=== PATIENT | male | born 1990 | race Hispanic/Latino ===

== ENCOUNTER 2022-08-15 20:38 | Emergency (ER) | payer OTHER ==
[~2022-08-15] VITALS: Ht 167.6 cm; Wt 72.6 kg
[2022-08-15 20:51] VITALS: BP 118/71
== END 2022-08-15 21:26 ==
LOC: EEVIPCON 20:38 → EDH 20:38
DX: T18.9XXA Foreign body of alimentary tract, part unspecified, initial encounter (principal); F32.A Depression, unspecified; X58.XXXA Exposure to other specified factors, initial encounter; Y93.89 Activity, other specified; Y92.89 Other specified places as the place of occurrence of the external cause; Y99.8 Other external cause status
CPT/HCPCS: 71045; 74018